=== PATIENT | male | born 1970 | race Caucasian/White ===

== ENCOUNTER 2022-12-09 09:41 | Day surgery (SDC) | payer OTHER ==
[2022-12-07 15:27] LABS: Potassium 4.1 mEq/L (3.5-5.1)
--- NOTE | 2022-12-08 12:29 | EKG ---
Test Date: 2022-12-07 Test Time: 14:24:46 [employer]: [facility] MEASUREMENT RESULTS: Intervals: Rate: 88 CA: 136 QRSD: 90 QT: 348 QTc: 421 [place]: P: 33 CA: 136 QRS: -12 T: 29 INTERPRETIVE STATEMENTS: Normal sinus rhythm Normal ECG No previous ECG available for comparison Electronically Signed On 12-08-22 12:27:54 CDT by Boris Orantes
[2022-12-09] MEDS ORDERED: CEFAZOLIN SODIUM 2 GM/VIAL ONE (10:17)
[2022-12-09] MEDS ORDERED: Ringers Lactate 1,000 ML IV ONE (10:17)
[2022-12-09] MEDS ORDERED: propofoL 200 MG/20 ML VIAL IV ONE (11:25)
[2022-12-09] MEDS ORDERED: FENTANYL CITR 100 MCG/2 ML ONE (11:25)
[2022-12-09] MEDS ORDERED: MIDAZOLAM HCL 2 MG/2 ML INJ ONE ×2 (11:26→12:35)
[2022-12-09] MEDS ORDERED: ROCURONIUM 50 MG/5 ML VIAL IV ONE (11:26)
[2022-12-09] MEDS ORDERED: LIDOCAINE 2% MPF 5 ML VIAL ONE (11:26)
[2022-12-09] MEDS ORDERED: BUPIVACAINE 0.25% PF 10 ML VIAL ONE (11:48)
[2022-12-09] MEDS ORDERED: BUPIVACAINE 0.25% PF 30 ML VIAL ONE (12:33)
[2022-12-09] MEDS ORDERED: ONDANSETRON 4 MG/2 ML VIAL ONE (12:35)
[2022-12-09] MEDS ORDERED: KETOROLAC 30 MG/ML INJ ONE (12:35)
--- NOTE | 2022-12-09 13:25 | P.OP ---
Preoperative diagnosis: Umbilical Hernia Postoperative diagnosis: Umbilical Hernia Primary procedure: Laparoscopic Umbilical Hernia Repair with mesh Anesthesia: GETA + Local Estimated blood loss: <5cc Specimen: Hernia Contents Findings: Incacerated Preperitoneal Adipose Complications: None Implants: Bard Ventralite ST mesh 11.4cm Round, Sorbafix x 45 Transferred to: Recovery Room Condition: Good
[2022-12-09] MEDS ORDERED: dexAMETHasone 10 MG/ML VIAL ONE (13:31)
[2022-12-09 14:26] VITALS: BP 161/97; TEMP 97.3; O2SAT 93
--- NOTE | 2022-12-10 00:32 | OP ---
Date of Procedure: 12/09/2022 Surgeon: Jovani Mcdonald MD, Preoperative Diagnosis: Umbilical hernia. Postoperative Diagnosis: Umbilical hernia. Procedure Performed: A laparoscopic umbilical hernia repair with mesh. Anesthesia: General endotracheal plus local with 0.25% Marcaine as above, 5 cc. Specimen: Hernia contents. Findings: Incarcerated preperitoneal adipose tissue and approximately 1.5 cm umbilical hernia defect . Complications: None. Implants: Bard Ventralight ST mesh with Echo Positioning System, 11.4 cm round utilized SorbaFix abs orbable fixation tacks, x45 tacks utilized. Disposition: The patient was transferred to the recovery room in good condition. Procedure In Detail: After informed consent was obtained, patient was brought to the operating room, prepped and draped in the usual sterile fashion after adequate anesthesia was achieved. An area of the left upper quadrant was anesthetized with 0.25% Marcaine, sharply incised. A 5 mm trocar was nikhil david under direct vision without any evidence of complication. His abdomen was insufflated to 15 mmHg at this time. There was no injury to vital structure upon entry into the abdomen. Additional troca r was placed in the left lower quadrant. This was similarly anesthetized, sharply incised. A 12 mm trocar was placed under direct vision without evidence of complication. At this point, I proceeded t o use the LigaSure device to take down preperitoneal adipose tissue from the anterior abdominal wall, removed intraperitoneally incarcerated omental adipose tissue from the preperitoneal defect, which w as approximately 5 cm in size. At this point, after the area was completely cleansed and the abdomin al wall, swept clean of any adipose tissue, I placed all hernia contents into an EndoCatch bag, remov ed the left lower quadrant trocar, sent off for pathologic examination. At this point, the abdomen w as re-insufflated. No additional hemostatic measures required. I then used the EndoStitch with 0 V- Loc suture to close the defect and imbricate in the hernia sac in the umbilical position. After the hernia defect was completely closed, I deployed an 11.4 cm Bard Ventralight mesh with echo positionin g system in the center portion of the defect, which is at the superior aspect of the umbilicus. At t his point, SorbaFix absorbable fixation tacks were used to secure the mesh to the anterior abdominal wall with 45 tacks at this point with good apposition of the anterior bowel wall. The mesh was in go od apposition without any hemostasis required. The balloon deployment system was removed at this poi nt and found to be intact on the back table. The abdomen was inspected 1 last time. No additional h emostatic measures were required. The patient was slightly rolled away. I then closed the 12 mm tro car site using a Carlos A-Neo suture passer with 0 Vicryl in interrupted fashion with good approxi mation of tissues. The abdomen was then completely desufflated under direct vision without evidence of complication and remaining trocars removed. All skin incisions were then copiously irrigated and closed with 4-0 Monocryl in running fashion. Dermabond placed over top. The patient tolerated the p rocedure well without evidence of complication and transferred to PACU in good condition. All counts were correct. RAFAEL/ELAINE Voice ID: [id number] Report ID: [id number]
== END 2022-12-09 14:53 | disposition home or self-care (01) ==
LOC: OR 09:41
PROVIDERS: ATTEND Surgery
PROC: 0WUF4JZ Supplement Abdominal Wall with Synthetic Substitute, Percutaneous Endoscopic Approach (ICD-10-PCS; principal; 2022-12-09 12:00)
DX: K42.9 Umbilical hernia without obstruction or gangrene (principal); I10 Essential (primary) hypertension; E66.9 Obesity, unspecified; Z68.33 Body mass index [BMI] 33.0-33.9, adult; F10.90 Alcohol use, unspecified, uncomplicated
CPT/HCPCS: 93005; 80048; 36415; 88302; 49591; J2704; J2001; J2250; J3010; J1100; J2405; J7120; C1781